=== PATIENT | female | born 1990 | race Two or more races ===

== ENCOUNTER 2017-07-06 19:35 | Emergency (ER) | payer OTHER ==
[~2017-07-06] VITALS: Ht 160 cm; Wt 80.0 kg
[2017-07-06 19:37] VITALS: BP 124/86
== END 2017-07-06 21:17 | disposition home or self-care (01) ==
LOC: ED 21:10
DX: H11.32 Conjunctival hemorrhage, left eye (principal); F17.210 Nicotine dependence, cigarettes, uncomplicated
CPT/HCPCS: 99281; 99282